=== PATIENT | female | born 1985 | race Caucasian/White ===

== ENCOUNTER 2021-08-15 20:45 | Emergency (ER) | payer OTHER, SELFPAY ==
[2021-08-15 21:43] VITALS: BP 147/89; PULSE 86; RESP 22; TEMP 36.8; O2SAT 96; BMI 37.1
[2021-08-15 22:03] VITALS: BP 147/89; PULSE 86; RESP 20; TEMP 36.6
--- NOTE | 2021-08-15 22:04 | HMH.EDUTC ---
[facility] [place] Disposition Clinical Impression: Encounter for laboratory testing for COVID-19 virus Disposition: Home, Self-Care Condition on Discharge: Good Instructions: DI for COVID-19 (Suspected or Confirmed ), Preventing the Spread of Coronavirus Discharge Instructions Additional Instructions: *Monitor Temp, Over the counter Motrin or Tylenol as directed/as needed Tylenol every 4 hours and Motrin every 6 hours (as long as your family doctor has told you that you can take it) for fever or pain. and straight to ER if unable to lower temp less than 101.0 after medication given Follow up IMMEDIATELY for new or worsening symptoms or no Noticeable improvement over the next 48-72 hours. 911 for difficulty breathing or swallowing You were tested for today for COVID19 your test result should be back in the next 24-48 hours, you was given handout with instructions on how to log onto the [facility] portal if you have trouble you may call back for your results You was given a handout with instructions for Self Quarantine and Self isolation for while you wait on test results and what to do if they are positive If you are positive the Health Dept will be contacting you also Make sure to take your Vitamins Vit. C Vit D and Zinc if you can take them Referrals: Provider,Referral, MD [Primary Care Provider] - As needed Time of Disposition: 22:08 Medical Decision Making - Bert Inquiry Pt receiving controlled substance: No Bert was queried for this patient: No Vital Signs: 08/15/21 21:43 08/15/21 22:03 Temperature 98.2 F 98 F Temperature Source Oral Pulse Rate 86 Pulse Rate [Left] 86 Respiratory Rate 22 20 Blood Pressure 147/89 H Blood Pressure [Right Arm] 147/89 H Blood Pressure Mean [Right Arm] 108 02 Sat by Pulse Oximetry 96 Orders (Tests/Meds): ORDERS Category Date Time Status Covid-19 Nasal PCR ([facility]) Routine Lab 08/15/21 21:48 Received [facility] HPI - General Stated complaint: covid test Time Seen by Provider: 08/15/21 22:04 Mode of Arrival: Ambulatory Source of Information: Patient Limitations: No Limitations Description of Symptoms (Recalled from Triage Doc. by RN): pts was directly exposed to covid. pts pcp believes she has L lobe lung cancer. she presents with soa, lung pain and a cough. pt states it feels about the same as it has before exposure. she believes this is her baseline. HEENT Symptoms (Recalled from RN notes): No Resp Symptoms (Recalled from RN notes): Yes Skin Symptoms (Recalled from RN notes): No MS Symptoms (Recalled from RN notes): No Functional Status (Recalled from RN notes): na - History of Present Illness Provider Complaint: Patient state that she is currently being seen by her PCP and worked up for Lung CA states that she was recently around someone that tested positive for COVID States that she has appointment tomorrow with her Lung Doctor and she wanted to get tested before her appointment States that she is not having any symptoms any different than she usually has - Worker's Comp Is this a Worker's Comp case?: No [facility] History - Hepatitis A Screen Drug use history?: No High risk sexual behaviors?: No History of sexually transmitted infection?: No Currently employed?: No Childcare worker?: No Do you have indoor plumbing?: Yes Do you have electricity?: Yes Attestation statement:: This patient has been screened for Hepatitis A risk factors. I have reviewed the patient's past medical history: Yes ROS Obtained: Yes All systems reviewed & no additional complaints, Yes Systems reviewed as appropriate & no additional complaints - Constitutional Constitutional: Reports system reviewed and no additional complaints, except as docu, Denies body ache, Denies chills, Denies fever(s) - ENT Ears, Nose, Mouth, and Throat: Reports system reviewed and no additional complaints, except as docu, Denies nasal congestion, Denies nasal discharge, Denies sore throat - Cardiovascular Cardi
== END 2021-08-15 22:14 | disposition home or self-care (01) ==
PROVIDERS: Emergency Provider Nurse Practitioner
DX: Z20.822 Contact with and (suspected) exposure to COVID-19 (principal); C34.90 Malignant neoplasm of unspecified part of unspecified bronchus or lung; R05 Cough; R07.9 Chest pain, unspecified
CPT/HCPCS: 99202; C9803; G0463; U0003; U0005

== ENCOUNTER 2022-07-24 10:15 | Emergency (ER) | payer OTHER, SELFPAY ==
[2022-07-24 10:16] VITALS: BP 92/63; PULSE 86; RESP 18; TEMP 36.9; O2SAT 98; BMI 35.5
--- NOTE | 2022-07-24 11:45 | CT_ITS ---
FINAL REPORT TECHNIQUE: Axial images through the abdomen and pelvis were performed without contrast. This study was performed with techniques to keep radiation doses as low as reasonably achievable, (ALARA). Individualized dose reduction techniques using automated exposure control or adjustment of mA and/or kV according to the patient's size were employed. CLINICAL HISTORY: concern for nephrolithiasis pain right side FINDINGS: ABDOMEN: The lung bases are clear. The heart size is normal. Limited images of the liver are unremarkable. The patient is status post cholecystectomy. The spleen is normal. No adrenal mass is identified. The aorta is normal in caliber. There is no significant free fluid or adenopathy. There is no nephrolithiasis. There is no hydronephrosis. There is right perinephric stranding which may be due to acute right pyelonephritis or sequela of recently passed ureteral stone. No ureteral stone is identified. PELVIS: The appendix is unremarkable. The urinary bladder is unremarkable. There is no significant free fluid or adenopathy. IMPRESSION: Acute right pyelonephritis versus sequela of recently passed ureteral stone. Reviewed, Interpreted and Dictated by Hilario Harper III, MD Transcribed by Meg Cosby Authenticated and . [facility]
[2022-07-24 11:57] LABS: Microscopic, Urine URINE MICROSCOPIC (MICROSCOPIC)
[2022-07-24 11:59] LABS: Appearance,Urine CLOUDY (Clear); Blood, Urine 3+ (Negative); Color,Urine YELLOW (Yellow); Glucose,Urine (UA) Negative (Negative); Ketones,Urine 1+ (Negative); Leukocyte Esterase,Urine 3+ (Negative); Nitrate,Urine POSITIVE (Negative); Protein,Urine 1+ (Negative); Specific Gravity, Urine 1.015 (1.005-1.030)
[2022-07-24 12:04] LABS: Bilirubin,Urine 1+ (Negative); Coronavirus 19, PCR Not Detected (NotDetected); Influenza A, PCR Not Detected (NotDetected); Influenza B, PCR Not Detected (NotDetected)
[2022-07-24 12:15] LABS: Bacteria,Urine 2+ /lpf; Squamous Epithelial Cell,Urine Occasional #/hpf (0-5); WBC,Urine 20-50 #/hpf (0-3)
[2022-07-24 12:30] VITALS: BP 109/72; PULSE 83; O2SAT 95
[2022-07-24 12:43] LABS: Basophils # 0.1 K/mm3 (0-0.2); Basophils % 0.5 % (0.1-2.0); Eosinophils # 0.1 K/mm3 (0.0-0.4); Eosinophils % 1.2 % (0.1-12.0); Hematocrit 37.6 % (37.0-47.0); Hemoglobin 11.4 g/dL (12.2-16.2); Lymphocytes # 1.5 K/mm3 (0.7-4.5); Lymphocytes % 13.6 % (10-50); Mean Corpuscular HGB Conc 30.5 g/dL (31.8-35.4); Mean Corpuscular Hemoglobin 23.4 pg (27.0-31.2); Mean Corpuscular Volume 76.7 fl (81-99); Mean Platelet Volume 8.8 fl (7.4-10.4); Monocytes # 0.9 K/mm3 (0.1-1.0); Monocytes % 8.2 % (1.7-9.3); Neutrophils # 8.2 K/mm3 (1.8-7.8); Neutrophils % 76.5 % (37.0-80.0); Platelet Count 500 K/mm3 (142-424); Red Cell Distribution Width 17.4 % (11.5-17.5); White Blood Count 10.7 K/mm3 (4.8-10.8)
[2022-07-24 12:48] LABS: Alanine Aminotransferase 26 U/L (12-78); Albumin Level 3.8 g/dl (3.5-5.0); Alkaline Phosphatase 128 U/L (38-126); Anion Gap 10.7 mEq/L (5-15); Aspartate Amino Transferase 43 U/L (14-36); Bilirubin,Total 0.2 mg/dl (0.2-1.3); Blood Urea Nitrogen 13 mg/dl (7-17); Carbon Dioxide 31 mmol/L (22.0-30.0); Chloride 101 mmol/L (98-107); Creatinine Clearance Estimated 120 mL/min (50-200); Estimated Glomerular Filt Rate 62 ml/min (>60); GFR (African American) 75 ML/MIN (>60); Glucose 128 mg/dl (74-100); Lipase 106 U/L (23-300); Potassium 3.7 mmoL/L (3.5-5.1); Sodium 139 mmol/L (136-145); Total Protein,Serum 7.8 g/dl (6.3-8.2)
[2022-07-24 13:07] LABS: Procalcitonin 0.312 ng/mL (0.0-2.0)
[2022-07-24 13:31] VITALS: BP 114/78; PULSE 77; O2SAT 100
--- NOTE | 2022-07-24 13:49 | HMH.EDGENADL ---
Discharge Plan Disposition Patient Disposition: Home, Self-Care Condition: Fair Prescriptions Prescriptions: New cefdinir 300 mg capsule 300 mg PO BID 10 Days Qty: 20 0RF Referrals Follow up/Referrals: Provider,Referral, [Primary Care Provider] - See instructions Clinical Impressions Clinical Impression: Pyelonephritis Instructions Patient Instructions: DI for Kidney Infection Discharge ED Provider: Kris Ross General Adult HPI General Chief complaint: PAIN Stated complaint: Fever, chills, lower back pain Time Seen by Provider: 07/24/22 10:30 Mode of Arrival: Ambulatory Source of Information: Patient Limitations: No Limitations Description of Symptoms (Recalled from ER Triage Doc. by RN): c/o fever, vomiting, right side pain that has moved into her bladder , symptoms started 1 week ago History of Present Illness HPI narrative: This is a 36-year-old female who presents with concern for right-sided pain and abdominal pain. She says that the pain started about a week ago. She says that started on her right side and then subsequently moved into the suprapubic area. She says that yesterday she went to the bathroom and had a substantial amount of pain but the pain did get a little bit better afterwards. She continues to have pretty substantial right flank pain as well as suprapubic pain. She does endorse some fever and chills as well. She says that the pain feels like it connects between the 2 areas. She has been a little nauseous as well. Denies any diarrhea. Denies any chest pain. Related Data Previous Rx's Medication Instructions Recorded cefdinir 300 mg capsule 300 mg PO BID 10 days #20 caps 07/24/22 Allergies Allergy/AdvReac Type Severity Reaction Status Date / Time ondansetron [From Zofran] Allergy Verified 07/24/22 12:10 [facility] Social History Smoking Status: Current every day smoker alcohol intake: never current occupational status: other Travel in the last 8 weeks: None ROS Obtained: Yes All systems reviewed & no additional complaints except as documented A 14 point review of system was performed and negative except per HPI Physical Exam General General appearance: alert and in no apparent distress Head Head exam: atraumatic, normocephalic and normal inspection Eye Eye exam: Present normal appearance, PERRL and EOMI ENT ENT exam: Present normal exam, normal oropharynx, mucous membranes moist, TM's normal bilaterally and normal external ear exam Neck Neck exam: Present normal inspection, full ROM and trachea midline; Absent meningismus or lymphadenopathy Chest Chest inspection: Present normal inspection and symmetric chest wall rise; Absent tenderness Respiratory Respiratory exam: Present normal lung sounds bilaterally; Absent respiratory distress Cardiovascular Cardiovascular exam: Present regular rate and normal rhythm; Absent JVD Abdominal Exam Abdominal exam: Present soft, tenderness and normal bowel sounds; Absent distention or guarding Abdominal tenderness: Present suprapubic Extremities Exam Extremities exam: Present normal inspection, full ROM and normal capillary refill; Absent calf tenderness Back Exam Back exam: Present normal inspection and CVA tenderness (R); Absent tenderness Neurological Exam Neurological exam: Present alert and oriented X3 Psychiatric Psychiatric exam: Present normal affect and normal mood Skin Skin exam: Present warm, dry, intact and normal color Lymphatic Lymphatic Findings: no adenopathy Medical Decision Making Bert Inquiry Pt receiving controlled substance: Yes Bert was queried for this patient: No Risks and benefits of using a controlled substance: were discussed with pt by me Vital Signs: 07/24/22 10:16 Temperature 98.4 F Temperature Source Oral Pulse Rate [Left Radial] 86 Respiratory Rate 18 Blood Pressure [Right Arm] 92/63 L Blood Pressure Mean [Right Arm] 72 Blood Pressure Source [Right Arm]
[2022-07-24 14:00] VITALS: BP 109/72; PULSE 68; O2SAT 98
[2022-07-24 14:07] VITALS: BP 109/72; PULSE 66; RESP 16; TEMP 36.9; O2SAT 98
== END 2022-07-24 14:11 | disposition home or self-care (01) ==
PROVIDERS: Emergency Provider Student in an Organized Health Care Education/Training Program
DX: N39.0 Urinary tract infection, site not specified (principal); M54.50 Low back pain, unspecified; R11.2 Nausea with vomiting, unspecified; R50.9 Fever, unspecified; F17.210 Nicotine dependence, cigarettes, uncomplicated; Z20.822 Contact with and (suspected) exposure to COVID-19; Z88.8 Allergy status to other drugs, medicaments and biological substances
CPT/HCPCS: 74176; 80053; 81001; 83690; 84145; 85025; 86140; 87086; 87088; 87186; 96361; 96374; 96375; 99285; C9803; J0696; U0003; U0005

== ENCOUNTER 2022-08-16 12:03 | Emergency (ER) | payer OTHER, SELFPAY ==
[2022-08-16 12:12] VITALS: BP 103/73; PULSE 114; RESP 17; TEMP 37.2; O2SAT 100; BMI 34.4
--- NOTE | 2022-08-16 12:15 | HMH.EDGENADL ---
Discharge Plan Disposition Patient Disposition: Home, Self-Care Condition: Good Prescriptions Prescriptions: New cephalexin 500 mg capsule 500 mg PO Q6H 7 Days Qty: 28 0RF No Action cefdinir 300 mg capsule 300 mg PO BID 10 Days Qty: 20 0RF Referrals Follow up/Referrals: Provider,Referral, [Primary Care Provider] - See instructions Clinical Impressions Clinical Impression: UTI (urinary tract infection) Instructions Patient Instructions: DI for Urinary Tract Infection (UTI), Cephalexin Discharge ED Provider: Neville Weaver General Adult HPI General Chief complaint: PAIN Stated complaint: Fever, chills, RT lower back pain Time Seen by Provider: 08/16/22 12:15 History of Present Illness HPI narrative: 36-year-old female with history of nephrolithiasis, has never required lithotripsy in the past. She presents with 1 day of severe right flank pain, pain rated 10 out of 10, radiating from the right flank into the right groin associated with dysuria. She reports associated nausea, no vomiting or fever. No treatments thus far. She states she was seen here previously for similar episode a few weeks ago stone at that time passed spontaneously. Related Data Previous Rx's Medication Instructions Recorded cefdinir 300 mg capsule 300 mg PO BID 10 days #20 caps 07/24/22 cephalexin 500 mg capsule 500 mg PO Q6H 7 days #28 caps 08/16/22 Allergies Allergy/AdvReac Type Severity Reaction Status Date / Time ondansetron [From Zofran] Allergy Verified 07/24/22 12:10 [facility] PFS Social History Smoking Status: Never smoker alcohol intake: never current occupational status: other Travel in the last 8 weeks: None ROS Obtained: Yes Systems reviewed as appropriate & no additional complaints except as documented Constitutional Constitutional: Reports system reviewed and no additional complaints, except as documented Eyes Eyes: Reports system reviewed and no additional complaints, except as documented ENT Ears, Nose, Mouth, and Throat: Reports system reviewed and no additional complaints, except as documented Cardiovascular Cardiovascular: Reports system reviewed and no additional complaints, except as documented Respiratory Respiratory: Reports system reviewed and no additional complaints, except as documented Gastrointestinal Gastrointestingal: Reports system reviewed and no additional complaints, except as documented Genitourinary Female Genitourinary: Reports as per HPI and Reports dysuria Musculoskeletal Musculoskeletal: Reports system reviewed and no additional complaints, except as documented Integumentary/Breasts Skin/Breast: Reports system reviewed and no additional complaints, except as documented Neurologic Neurologic: Reports system reviewed and no additional complaints, except as documented Endocrine Endocrine: Reports system reviewed and no additional complaints, except as documented Hematologic/Lymphatic Henatologic/Lymphatic: Reports system reviewed and no additional complaints, except as documented Allergic/Immunologic Allergic/Immunologic: Reports system reviewed and no additional complaints, except as documented Physical Exam General General appearance: alert and in no apparent distress (Mild distress) Head Head exam: atraumatic, normocephalic and normal inspection Eye Eye exam: Present normal appearance, PERRL and EOMI ENT ENT exam: Present normal exam, normal oropharynx, mucous membranes moist, TM's normal bilaterally and normal external ear exam Neck Neck exam: Present normal inspection, full ROM and trachea midline; Absent meningismus or lymphadenopathy Chest Chest inspection: Present normal inspection and symmetric chest wall rise; Absent tenderness Respiratory Respiratory exam: Present normal lung sounds bilaterally; Absent respiratory distress Cardiovascular Cardiovascular exam: Present regular rate and normal rhythm; Absen
[2022-08-16 12:28] LABS: Chloride 98 mmol/L (98-107)
[2022-08-16 12:29] LABS: Basophils # 0.1 K/mm3 (0-0.2); Basophils % 0.4 % (0.1-2.0); Eosinophils # 0.3 K/mm3 (0.0-0.4); Eosinophils % 2.1 % (0.1-12.0); Hematocrit 39.5 % (37.0-47.0); Hemoglobin 12.2 g/dL (12.2-16.2); Lymphocytes # 1.1 K/mm3 (0.7-4.5); Lymphocytes % 8.2 % (10-50); Mean Corpuscular HGB Conc 30.8 g/dL (31.8-35.4); Mean Corpuscular Hemoglobin 23.5 pg (27.0-31.2); Mean Corpuscular Volume 76.2 fl (81-99); Mean Platelet Volume 8.5 fl (7.4-10.4); Monocytes # 1.1 K/mm3 (0.1-1.0); Monocytes % 8.1 % (1.7-9.3); Neutrophils # 11.2 K/mm3 (1.8-7.8); Neutrophils % 81.2 % (37.0-80.0); Platelet Count 377 K/mm3 (142-424); Potassium 4.2 mmoL/L (3.5-5.1); Red Blood Count 5.19 M/mm3 (4.20-5.40); Red Cell Distribution Width 18.1 % (11.5-17.5); Sodium 135 mmol/L (136-145); White Blood Count 13.8 K/mm3 (4.8-10.8)
[2022-08-16 12:30] VITALS: BP 101/68; PULSE 104
--- NOTE | 2022-08-16 12:30 | CT_ITS ---
FINAL REPORT TECHNIQUE: Noncontrast exam CLINICAL HISTORY: flank pain, right FINDINGS: Abdomen: Lung bases are clear. Fatty liver with mild hepatosplenomegaly. Right perinephric stranding without hydronephrosis or obstructing stone. This can be seen with recently passed stone or pyelonephritis. Evidence of cholecystectomy. Remaining solid abdominal organs unremarkable. Pelvis: No distal ureteral stones are seen. Bladder is unremarkable. No bowel obstruction. Normal appendix. Uterus and ovaries are unremarkable. Trace amount of free fluid. IMPRESSION: Right perinephric stranding without hydronephrosis or obstructive stone which can be seen with recently passed stone or pyelonephritis. Reviewed, Interpreted and Dictated by Susan Narayan MD Transcribed by Paul Armstrong Authenticated and [facility]
[2022-08-16 12:31] LABS: Alanine Aminotransferase 23 U/L (12-78); Aspartate Amino Transferase 37 U/L (14-36); Blood Urea Nitrogen 11 mg/dl (7-17); Creatinine Clearance Estimated 150 mL/min (50-200); Estimated Glomerular Filt Rate 80 ml/min (>60); GFR (African American) 97 ML/MIN (>60)
[2022-08-16 12:32] LABS: Albumin Level 3.9 g/dl (3.5-5.0); Albumin/Globulin Ratio 1.2 (1.1-1.8); Alkaline Phosphatase 114 U/L (38-126); Anion Gap 14.2 mEq/L (5-15); Bilirubin,Total 0.3 mg/dl (0.2-1.3); Calcium 8.7 mg/dl (8.4-10.2); Carbon Dioxide 27 mmol/L (22.0-30.0); Globulin 3.3 g/dL (1.3-3.2); Glucose 103 mg/dl (74-100); Total Protein,Serum 7.2 g/dl (6.3-8.2)
[2022-08-16 12:41] LABS: Microscopic, Urine URINE MICROSCOPIC (MICROSCOPIC)
[2022-08-16 12:42] LABS: Appearance,Urine SL CLOUDY (Clear); Bilirubin,Urine Negative (Negative); Blood, Urine 1+ (Negative); Color,Urine YELLOW (Yellow); Glucose,Urine (UA) Negative (Negative); Ketones,Urine Negative (Negative); Leukocyte Esterase,Urine 2+ (Negative); Nitrate,Urine Negative (Negative); Protein,Urine TRACE (Negative); Urobilinogen,Urine 0.2 EU/dl (0.2)
--- NOTE | 2022-08-16 12:48 | PC.NURSE ---
PT BACK FROM CT
--- NOTE | 2022-08-16 12:49 | PC.NURSE ---
pt got up to use restroom got a urine sample, pt back in bed
--- NOTE | 2022-08-16 12:51 | PC.NURSE ---
rad brought pt back , pt sitting up in bed asked pt if she needed anything she stated not at this time
[2022-08-16 12:55] LABS: Bacteria,Urine 1+ /lpf; RBC,Urine Occasional #/hpf (0-3)
[2022-08-16 13:00] VITALS: BP 105/70; PULSE 100; RESP 17; O2SAT 95
[2022-08-16 13:30] VITALS: BP 114/67; PULSE 103; RESP 17; O2SAT 95
[2022-08-16 14:00] VITALS: BP 95/63
--- NOTE | 2022-08-16 14:46 | PC.NURSE ---
spoke to about IM administration of abx d/t IV infiltration. ok'd IM administration
[2022-08-16 15:01] VITALS: BP 104/72; PULSE 94; RESP 18; TEMP 37.1; O2SAT 98
== END 2022-08-16 15:03 | disposition home or self-care (01) ==
PROVIDERS: Emergency Provider Emergency Medicine
DX: N39.0 Urinary tract infection, site not specified (principal); Z88.8 Allergy status to other drugs, medicaments and biological substances
CPT/HCPCS: 74176; 80053; 81001; 85025; 87086; 87088; 87186; 96374; 99284; J0696

== ENCOUNTER 2023-08-02 21:30 | Observation (INO) | payer OTHER, SELFPAY ==
[2023-08-02 21:32] VITALS: BP 134/69; PULSE 99; RESP 20; TEMP 38.3; O2SAT 95; BMI 36.0
[2023-08-02 21:40] VITALS: BP 134/69; PULSE 109; RESP 20; O2SAT 95
--- NOTE | 2023-08-02 21:49 | CT_ITS ---
PROCEDURE INFORMATION: Exam: CT Abdomen And Pelvis With Contrast Exam date and time: 08/02/2023 10:39 PM Age: 37 years old Clinical indication: Abdominal pain; Additional info: Rlq pain TECHNIQUE: Imaging protocol: Computed tomography of the abdomen and pelvis with contrast. Radiation optimization: All CT scans at this facility use at least one of these dose optimization techniques: automated exposure control; mA and/or kV adjustment per patient size (includes targeted exams where dose is matched to clinical indication); or iterative reconstruction. Contrast material: ISOVUE; Contrast volume: 75 ml; Contrast route: IV; REPORTING DATA: Count of CT and Cardiac NM exams in prior 12 months: This patient has received [address] and 0 known cardiac nuclear medicine studies in the 12 months prior to the current study. COMPARISON: CT ABDOMEN PELVIS WO CON 08/16/2022 12:30 PM FINDINGS: Lungs: Clear basilar lung parenchyma. Pleural spaces: No pleural fluid. Heart: Normal heart size. Liver: Normal configuration. Homogeneous parenchyma. Gallbladder and bile ducts: Prior cholecystectomy. No biliary tree dilation or high-density retained stones appreciated. Pancreas: Normal. No ductal dilation. Spleen: Normal. No splenomegaly. Adrenal glands: Normal configuration. Kidneys and ureters: Right kidney is edematous. There is diffuse enhancement of the right ureter without dilation. Normal appearance of the left kidney and ureter. Stomach and bowel: Unremarkable. No obstruction. No mural thickening. Appendix: Normal appendix is confirmed. Intraperitoneal space: No free air. No significant fluid collection. Vasculature: Normal caliber arterial structures. Lymph nodes: No enlarged lymph nodes. Urinary bladder: There is mild enhancement of the bladder mucosa. Reproductive: Physiologic appearance for age. Bones/joints: No fracture or destructive lesion. Soft tissues: Unremarkable. IMPRESSION: Exam demonstrates findings of cystitis and right ureteritis. There may be early acute right pyelonephritis as well.
[2023-08-02 21:52] LABS: Microscopic, Urine URINE MICROSCOPIC (MICROSCOPIC)
[2023-08-02 21:54] LABS: Appearance,Urine TURBID (Clear); Blood, Urine 3+ (Negative); Color,Urine BROWN (Yellow); Glucose,Urine (UA) Negative (Negative); Ketones,Urine TRACE (Negative); Leukocyte Esterase,Urine 3+ (Negative); Nitrate,Urine POSITIVE (Negative); Protein,Urine 3+ (Negative)
[2023-08-02 22:05] LABS: Bilirubin,Urine 1+ (Negative)
[2023-08-02 22:06] LABS: Bacteria,Urine 3+ /lpf; WBC,Urine TNTC #/hpf (0-3)
[2023-08-02 22:13] LABS: Basophils % 0.2 % (0.1-2.0); Eosinophils # 0.5 K/mm3 (0.0-0.4); Eosinophils % 4.1 % (0.1-12.0); Hematocrit 45.6 % (37.0-47.0); Hemoglobin 13.2 g/dL (12.2-16.2); Lymphocytes # 1.4 K/mm3 (0.7-4.5); Mean Corpuscular Hemoglobin 21.4 pg (27.0-31.2); Mean Corpuscular Volume 73.7 fl (81-99); Monocytes # 0.9 K/mm3 (0.1-1.0); Monocytes % 7.1 % (1.7-9.3); Neutrophils # 9.7 K/mm3 (1.8-7.8); Neutrophils % 77.6 % (37.0-80.0); Platelet Count 435 K/mm3 (142-424); Red Blood Count 6.19 M/mm3 (4.20-5.40); Red Cell Distribution Width 16.6 % (11.5-17.5); White Blood Count 12.5 K/mm3 (4.8-10.8)
[2023-08-02 22:24] LABS: Alanine Aminotransferase 28 U/L (12-78); Albumin Level 4.5 g/dl (3.5-5.0); Albumin/Globulin Ratio 1.1 (1.1-1.8); Alkaline Phosphatase 123 U/L (38-126); Anion Gap 14.7 mEq/L (5-15); Aspartate Amino Transferase 35 U/L (14-36); Bilirubin,Total 0.2 mg/dl (0.2-1.3); Blood Urea Nitrogen 15 mg/dl (7-17); Calcium 9.2 mg/dl (8.4-10.2); Carbon Dioxide 31 mmol/L (22.0-30.0); Chloride 99 mmol/L (98-107); Creatinine Clearance Estimated 124 mL/min (50-200); Estimated Glomerular Filt Rate 62 ml/min (>60); GFR (African American) 75 ML/MIN (>60); Globulin 4.1 g/dL (1.3-3.2); Glucose 124 mg/dl (74-100); Potassium 4.7 mmoL/L (3.5-5.1); Sodium 140 mmol/L (136-145); Total Protein,Serum 8.6 g/dl (6.3-8.2)
[2023-08-02 22:30] VITALS: BP 121/76; PULSE 120; RESP 20; O2SAT 95
[2023-08-02 23:00] VITALS: BP 115/70; PULSE 104; RESP 16; O2SAT 96
--- NOTE | 2023-08-02 23:12 | HMH.EDGENADL ---
Discharge Plan Disposition Patient Disposition: Admitted Condition: Good Prescriptions Prescriptions: No Action cefdinir 300 mg capsule 300 mg PO BID 10 Days Qty: 20 0RF cephalexin 500 mg capsule 500 mg PO Q6H 7 Days Qty: 28 0RF fluconazole [Diflucan] 150 mg tablet 150 mg PO DAILY Qty: 1 0RF Rx Instructions: administer on day 1 of therapy Referrals Follow up/Referrals: Provider,Referral, MD [Primary Care Provider] - See instructions Clinical Impressions Clinical Impression: Pyelonephritis, Sepsis Instructions Patient Instructions: DI for Acute Abdominal Pain Discharge ED Provider: Arlene Guillen General Adult HPI General Chief complaint: Abdominal Pain Stated complaint: Lower RT side abd pain Time Seen by Provider: 08/02/23 21:47 Mode of Arrival: Ambulatory Source of Information: Patient Limitations: No Limitations Description of Symptoms (Recalled from ER Triage Doc. by RN): pt has cc of rlq pain, urinary frequency and pain along with blood in the urine, nausea and fever History of Present Illness HPI narrative: This patient is a 37-year-old female with a history of hepatitis C presenting to the emergency department for evaluation with concern for fever, chills, nausea, vomiting, and right lower quadrant pain radiating to her suprapubic region and vagina. She states that this started several days ago but acutely worsened today. She states that the pain is severe. She also states that it hebert when she pees and she is having urinary frequency. She denies any other concerns or complaints, such as changes in her bowel movements or other issues. Nothing seems to make it better or worse. Related Data Previous Rx's Medication Instructions Recorded cefdinir 300 mg capsule 300 mg PO BID 10 days #20 caps 07/24/22 cephalexin 500 mg capsule 500 mg PO Q6H 7 days #28 caps 08/16/22 fluconazole 150 mg tablet 150 mg PO DAILY 1 dose #1 tab 08/16/22 (Diflucan) Allergies Allergy/AdvReac Type Severity Reaction Status Date / Time ondansetron [From Zofran] Allergy Verified 07/24/22 12:10 [facility] Disclaimer: The information contained in this section may have been updated after the patient was seen, as this information can be updated by other users. Social History Smoking Status: Former smoker alcohol intake: never current occupational status: other Travel in the last 8 weeks: None ROS Obtained: Yes All systems reviewed & no additional complaints except as documented Physical Exam General General appearance: alert Comment: Ill and uncomfortable appearing, nontoxic Head Head exam: atraumatic and normocephalic Eye Eye exam: Present normal appearance, PERRL and EOMI ENT ENT exam: Present normal exam, normal oropharynx, mucous membranes moist and normal external ear exam Neck Neck exam: Present normal inspection, full ROM and trachea midline; Absent tenderness Chest Chest inspection: Present normal inspection and symmetric chest wall rise; Absent tenderness Respiratory Respiratory exam: Present normal lung sounds bilaterally; Absent respiratory distress, wheezes, stridor or accessory muscle use Cardiovascular Cardiovascular exam: Present normal rhythm and tachycardia Abdominal Exam Abdominal exam: Present soft and tenderness (Suprapubic); Absent distention, guarding, rebound or rigidity Extremities Exam Extremities exam: Present normal inspection, full ROM and normal capillary refill; Absent tenderness or edema Back Exam Back exam: Present normal inspection and full ROM; Absent tenderness Neurological Exam Neurological exam: Present alert, oriented X3, CN II-XII intact and normal gait; Absent motor sensory deficit Psychiatric Psychiatric exam: Present normal affect and normal mood Skin Skin exam: Present warm and dry Medical Decision Making Medical Records Medical records reviewed: Yes I reviewed the patient's medical
[2023-08-02 23:30] VITALS: BP 104/77; PULSE 103; RESP 18; O2SAT 96
--- NOTE | 2023-08-02 23:39 | PC.NURSE ---
ER MD spoke with hospitalist regarding patient admission for sepsis and pylonephritis. ER charge nurse called boilerhouse mechanic
--- NOTE | 2023-08-02 23:40 | PC.NURSE ---
notified household assistant of admission
--- NOTE | 2023-08-02 23:40 | PC.NURSE ---
OBSERVATION ADMISSION TO 213 WITH DX OF PYELONEPHRITIS AND SEPSIS TO SERVICE OF HOSPITALIST.
--- NOTE | 2023-08-02 23:41 | EXP.HP ---
History of Present Illness *Admission Date: 08/02/23 *Reason for visit:: Pyelonephritis *History of present illness: 37-year-old female presented to ED for c/o RLQ abd pain since Saturday. PMHX of hepatitis C, prior heroin use, and COPD. RLQ abd pain radiates to her suprapubic region and vagina. She also c/o fever, chills, and nausea. She also states that it hebert when she pees and she is having urinary frequency. She denies any other concerns or complaints, such as changes in her bowel movements or other issues. ED work up reveals leukocytosis of 12.5, heart rate of 115, and tmax of 101. Her urine is positive for nitrates, leukocyte esterase, TNTC WBC count, and +[address] of the abd/pelvis reveals acute right sided pyelonephritis. She had blood cultures and a urine culture obtained in the ED. She was started on Rocephin 1gm IV. The ED physician spoke with the hospitalist team for further medical management. She arrives to the medical floor in no acute distress requesting to eat. [facility] Disclaimer: The information contained in this section may have been updated after the patient was seen, as this information can be updated by other users. Medical History (Updated 08/03/23 @ 00:45 by NAMRATA Barajas) Anxiety Asthma Chronic bronchitis COPD (chronic obstructive pulmonary disease) Depression Hepatitis C Hypertension Manic bipolar I disorder PTSD (post-traumatic stress disorder) Restless leg syndrome Surgical History (Updated 08/03/23 @ 00:26 by Nicole Henson RN) History of cholecystectomy History of tonsillectomy and adenoidectomy History of tubal ligation Social History (Updated 08/03/23 @ 00:26 by Nicole Henson RN) Smoking Status: Former smoker smoking status stop date: 2 years ago alcohol intake: never current occupational status: employed and other Travel in the last 8 weeks: None household members: children and friend(s) marital status: number of children: 7 Review of Systems *Cardiovascular Cardiovascular: Reports system reviewed and no additional complaints, except as documented, Denies chest pain and Denies dyspnea *Respiratory Respiratory: Reports system reviewed and no additional complaints, except as documented and Denies dyspnea *Gastrointestinal Gastrointestinal: Reports abdominal pain (RLQ) *Genitourinary Genitourinary: Reports as per HPI, Reports difficulty voiding, Reports dysuria and Reports pelvic pain *Musculoskeletal Musculoskeletal: Reports system reviewed and no additional complaints, except as documented *Neurologic Neurologic: Reports system reviewed and no additional complaints, except as documented Meds Home Medications and Allergies Home Medications Medication Instructions Recorded Confirmed Type albuterol sulfate 90 mcg/actuation 2 puff inhalation DAILY PRN SOB 08/03/23 08/03/23 History aerosol inhaler (Ventolin HFA) buprenorphine 8 mg-naloxone 2 mg 1 tab sublingual BID Former Drug 08/03/23 08/03/23 History sublingual tablet User cariprazine 1.5 mg capsule 1.5 mg PO HS Depression 08/03/23 08/03/23 History (Lali) escitalopram oxalate 20 mg tablet 20 mg PO HS Depression 08/03/23 08/03/23 History fluticasone propionate 115 1 puff inhalation BID Copd 08/03/23 08/03/23 History mcg-salmeterol 21 mcg/actuation HFA inhaler (Advair HFA) fluticasone propionate 50 1 spray intranasal NEEDED PRN 08/03/23 08/03/23 History mcg/actuation nasal allergies spray,suspension gabapentin 600 mg tablet 600 mg PO TID Restless leg pain 08/03/23 08/03/23 History hydroxyzine pamoate 50 mg capsule 50 mg PO DAILY Anxiety 08/03/23 08/03/23 History ketotifen fumarate 0.025 % (0.035 1 drp Eye-Both BID Cateracts 08/03/23 08/03/23 History %) eye drops lamotrigine 100 mg tablet 100 mg PO DAILY Depression 08/03/23 08/03/23 History levocetirizine 5 mg tablet 5 mg PO DAILY allergies 08/03/23 08/03/23 History meloxicam 15 mg tablet 15 m
--- NOTE | 2023-08-02 23:59 | PC.NURSE ---
called report to anshu viera on 2nd floor all questions answered
[2023-08-03] VITALS (9 sets, daily range): BP systolic 101–157; BP diastolic 55–87; PULSE 87–115; RESP 17–20; TEMP 36.8–37.7; O2SAT 93–100; BMI 36.8
--- NOTE | 2023-08-03 00:06 | PC.NURSE ---
RECEIVED PHONE REPORT FROM NATALIIA RN/ED NURSE AT 0647. PATIENT ARRIVED TO THE FLOOR VIA W/C AT 0005. DIAGNOSIS: SEPSIS/PYELONEPHRITIS. TAKES SUBOXONE.
--- NOTE | 2023-08-03 00:45 | EXP.SEPSISRE ---
[facility] Tissue Perfusion Eval Sepsis Re-Evaluation Performed: Yes Date Performed: 08/03/23 Time Performed: 00:45
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
--- NOTE | 2023-08-03 10:41 | EXP.PN ---
Subjective *Date: 08/03/23 *Time: 13:56 Interval history: Patient is seen and evaluated today. I am accompanied by her her nurse. Nursing staff report that she remains afebrile with tachycardic heart rate, stable blood pressures and saturating appropriately on room air. She reports inadequate pain control on her high-dose Suboxone therapy. We have added IV Toradol as needed and acetaminophen. CT of the abdomen and pelvis identifies right pyelonephritis. Exam Data for Last 24 hours Vital signs and Labs for Last 24 Hours: Temp Pulse Resp BP Pulse Ox O2 Del Method 99.8 F H 113 H 20 157/87 H 93 L Room Air 08/03/23 07:34 08/03/23 08:00 08/03/23 07:34 08/03/23 07:34 08/03/23 07:34 08/03/23 09:00 Laboratory Results - last 24 hr 08/02/23 21:37: Urine Color Brown, Urine Appearance Turbid, Urine pH 7.0, Ur Specific [place] 1.020, Urine Protein 3+, Urine Glucose (UA) Negative, Urine Ketones Trace, Urine Blood 3+, Urine Nitrate Positive, Urine Bilirubin 1+ A, Urine Urobilinogen 1.0, Ur Leukocyte Esterase 3+ A, Urine RBC 10-20, Urine WBC Tntc, Ur Squamous Epith Cells 5-10, Urine Bacteria 3+ 08/02/23 22:00: WBC 12.5 H, RBC 6.19 H, Hgb 13.2, Hct 45.6, MCV 73.7 L, MCH 21.4 L, MCHC 29.0 L, RDW 16.6, Plt Count 435 H, MPV 9.0, Neut % (Auto) 77.6, Lymph % (Auto) 11.0, Garvin % (Auto) 7.1, Eos % (Auto) 4.1, Baso % (Auto) 0.2, Neut # (Auto) 9.7 H, Lymph # (Auto) 1.4, [place]vin # (Auto) 0.9, Eos # (Auto) 0.5 H, Baso # (Auto) 0.0, Sodium 140, Potassium 4.7, Chloride 99, Carbon Dioxide 31 H, Anion Gap 14.7, BUN 15, Creatinine 1.00, Estimated Creat Clear 124, Estimated GFR 62, Est GFR ( Amer) 75, Glucose 124 H, Lactate 1.0, Calcium 9.2, Total Bilirubin 0.2, AST 35, ALT 28, Alkaline Phosphatase 123, Total Protein 8.6 H, Albumin 4.5, Globulin 4.1 H, Albumin/Globulin Ratio 1.1 I & O for Last 24 hours: Intake & Output 07/31/23 08/01/23 08/02/23 08/03/23 23:59 23:59 23:59 23:59 Intake Total 2239 Output Total 0 / 0 Balance 2239 / 2239 Weight 104.326 kg 106.282 kg Microbiology Reports for the Last 24 Hours: Microbiology 08/02/23 21:37 Urine,Clean Catch Urine Culture - Preliminary Gram Negative Rods Constitutional Constitutional: no acute distress, morbidly obese, chronically ill appearing and cooperative *Routine HEENT Exam Head: Present normocephalic Eye: Present EOMI and PERRL ENT: Present mucous membranes moist *Routine Neck Exam Neck: Present supple, full ROM and trachea midline; Absent lymphadenopathy *Routine Respiratory Exam Respiratory: Present rhonchi, normal respiratory effort and symmetric chest movement *Routine Cardiovascular Exam Cardiovascular: Present RRR, Normal S1 and Normal S2; Absent murmur *Routine Abdominal Exam Abdominal: Present soft and normoactive bowel sounds *Routine Extremities Exam Extremities: Present full ROM, pulses intact and normal capillary refill; Absent edema *Routine Skin Exam Skin: Present dry and warm; Absent rash *Routine Neurological Exam Neurological: Present alert, oriented X3, moving all extremities, vision grossly intact, hearing grossly intact and normal speech; Absent sensory deficit or motor deficit Routine Psychiatric Exam Psychiatric: Present normal affect, normal thought process, cooperative, good insight and good judgment Assessment and Plan *Assessment and plan (1) Sepsis: Status: Acute Category: Medical Code(s): A41.9 - Sepsis, unspecified organism (2) Pyelonephritis: Status: Acute Category: Medical Code(s): N12 - Tubulo-interstitial nephritis, not specified as acute or chronic (3) Opioid dependence on agonist therapy: Status: Acute Category: Medical Code(s): F11.20 - Opioid dependence, uncomplicated (4) BMI 37.0-37.9, adult: Status: Acute Category: Medical Code(s): Z68.37 - Body mass index [BMI] 37.0-37.9, adult (5) Mood disorder:
[2023-08-03 13:01] LABS: Basophils % 0.3 % (0.1-2.0); Eosinophils # 0.4 K/mm3 (0.0-0.4); Eosinophils % 3.4 % (0.1-12.0); Hematocrit 38.4 % (37.0-47.0); Lymphocytes # 1.2 K/mm3 (0.7-4.5); Lymphocytes % 10.1 % (10-50); Mean Corpuscular Hemoglobin 21.2 pg (27.0-31.2); Mean Platelet Volume 8.7 fl (7.4-10.4); Monocytes # 1.1 K/mm3 (0.1-1.0); Neutrophils # 8.7 K/mm3 (1.8-7.8); Neutrophils % 76.2 % (37.0-80.0); Platelet Count 315 K/mm3 (142-424); Red Blood Count 5.26 M/mm3 (4.20-5.40); Red Cell Distribution Width 16.5 % (11.5-17.5); White Blood Count 11.4 K/mm3 (4.8-10.8)
[2023-08-03 13:17] LABS: Chloride 101 mmol/L (98-107)
[2023-08-03 13:19] LABS: Anion Gap 12.2 mEq/L (5-15); Blood Urea Nitrogen 18 mg/dl (7-17); Calcium 8.5 mg/dl (8.4-10.2); Carbon Dioxide 29 mmol/L (22.0-30.0); Creatinine Clearance Estimated 141 mL/min (50-200); Estimated Glomerular Filt Rate 70 ml/min (>60); GFR (African American) 84 ML/MIN (>60); Glucose 127 mg/dl (74-100); Potassium 4.2 mmoL/L (3.5-5.1); Sodium 138 mmol/L (136-145)
[2023-08-03 15:49] LABS: Hemoglobin 11.2 g/dL (12.2-16.2)
--- NOTE | 2023-08-03 22:56 | PC.NURSE ---
2235 RECEIVED REPORT ON BLD CULTURE/ANEROBIC BTL: GRAM POSITIVE COCCI AND YEAST. STAPHYLOCOCCUS EPIDERMIDID, HAYN TROPICALIC, AND MECA -C GENE. TOSIN León. NOTIFIED.
[2023-08-04 04:00] VITALS: BP 133/73; PULSE 92; RESP 18; TEMP 37.3; O2SAT 93; BMI 38.1
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
[2023-08-04 07:24] VITALS: BP 139/72; PULSE 111; RESP 16; TEMP 38.4; O2SAT 99
[2023-08-04 11:13] VITALS: BP 139/70; PULSE 91; RESP 18; TEMP 36.9; O2SAT 90
--- NOTE | 2023-08-04 11:24 | EXP.PN ---
Subjective *Date: 08/04/23 *Time: 11:24 Interval history: The patient is seen and examined at bedside. She is accompanied by her mother. I am accompanied by nursing staff. Nursing staff report a Tmax 101.2 at 730 this morning with tachycardia and stable blood pressures. She is saturating appropriately on room air. We have reviewed, discussed and I personally interpreted her morning labs as follows: A CBC with an improved leukocytoses WBC 11.4, hemoglobin stable 11.2, platelets normal. Her electrolytes are normal with a potassium 4.2 BUN of 18 and creatinine 0.9. Her glucose trend is under 130. Her blood cultures are no growth to date and her urine cultures identify E. coli greater than 100,000 that is pansensitive. She continues to tolerate her Rocephin with no adverse events. Exam Data for Last 24 hours Vital signs and Labs for Last 24 Hours: Temp Pulse Resp BP Pulse Ox O2 Del Method 98.5 F 91 H 18 139/70 90 L Room Air 08/04/23 11:13 08/04/23 11:13 08/04/23 11:13 08/04/23 11:13 08/04/23 11:13 08/04/23 11:13 Laboratory Results - last 24 hr 08/03/23 12:47: WBC 11.4 H, RBC 5.26, Hgb 11.2 L D, Hct 38.4, MCV 73.0 L, MCH 21.2 L, MCHC 29.0 L, RDW 16.5, Plt Count 315 D, MPV 8.7, Neut % (Auto) 76.2, Lymph % (Auto) 10.1, [place] % (Auto) 10.0 H, Eos % (Auto) 3.4, Baso % (Auto) 0.3, Neut # (Auto) 8.7 H, Lymph # (Auto) 1.2, [place] # (Auto) 1.1 H, Eos # (Auto) 0.4, Baso # (Auto) 0.0, Sodium 138, Potassium 4.2, Chloride 101, Carbon Dioxide 29, Anion Gap 12.2, BUN 18 H, Creatinine 0.90, Estimated Creat Clear 141, Estimated GFR 70, Est GFR ( Amer) 84, Glucose 127 H, Calcium 8.5 I & O for Last 24 hours: Intake & Output 09/08/02/23 08/03/23 08/04/23 23:59 23:59 23:59 23:59 Intake Total 2719 Output Total 0 / 0 Balance 2719 Weight 104.326 kg 106.282 kg 110.268 kg Microbiology Reports for the Last 24 Hours: Microbiology 08/02/23 22:09 Blood Blood Culture - Preliminary 08/02/23 21:37 Urine,Clean Catch Urine Culture - Final Escherichia coli Constitutional Constitutional: no acute distress, morbidly obese, chronically ill appearing and cooperative *Routine HEENT Exam Head: Present normocephalic Eye: Present EOMI and PERRL ENT: Present mucous membranes moist *Routine Neck Exam Neck: Present supple, full ROM and trachea midline; Absent lymphadenopathy *Routine Respiratory Exam Respiratory: Present rhonchi, normal respiratory effort and symmetric chest movement *Routine Cardiovascular Exam Cardiovascular: Present RRR, Normal S1 and Normal S2; Absent murmur *Routine Abdominal Exam Abdominal: Present soft and normoactive bowel sounds *Routine Extremities Exam Extremities: Present full ROM, pulses intact and normal capillary refill; Absent edema *Routine Skin Exam Skin: Present dry and warm; Absent rash *Routine Neurological Exam Neurological: Present alert, oriented X3, moving all extremities, vision grossly intact, hearing grossly intact and normal speech; Absent sensory deficit or motor deficit Routine Psychiatric Exam Psychiatric: Present normal affect, normal thought process, cooperative, good insight and good judgment Assessment and Plan *Assessment and plan (1) Sepsis: Status: Acute Category: Medical Code(s): A41.9 - Sepsis, unspecified organism (2) Pyelonephritis: Status: Acute Category: Medical Code(s): N12 - Tubulo-interstitial nephritis, not specified as acute or chronic (3) Opioid dependence on agonist therapy: Status: Acute Category: Medical Code(s): F11.20 - Opioid dependence, uncomplicated (4) BMI 37.0-37.9, adult: Status: Acute Category: Medical Code(s): Z68.37 - Body mass index [BMI] 37.0-37.9, adult (5) Mood disorder: Status: Acute Category: Medical Code(s): F39 - Unspecified mood [affective] disorder (6
[2023-08-04 15:51] VITALS: BP 127/71; PULSE 92; RESP 20; TEMP 36.5; O2SAT 96
[2023-08-04 20:00] VITALS: BP 139/75; PULSE 88; RESP 20; TEMP 37.1; O2SAT 95
[2023-08-05] VITALS: BP 142/76; PULSE 105; RESP 18; TEMP 37.6; O2SAT 94
[2023-08-05 04:00] VITALS: BP 128/66; PULSE 85; RESP 18; TEMP 37.1; O2SAT 100; BMI 37.7
[2023-08-05 06:52] LABS: Basophils % 0.4 % (0.1-2.0); Eosinophils # 0.9 K/mm3 (0.0-0.4); Eosinophils % 12.5 % (0.1-12.0); Hematocrit 34.3 % (37.0-47.0); Hemoglobin 9.9 g/dL (12.2-16.2); Lymphocytes # 1.4 K/mm3 (0.7-4.5); Mean Corpuscular Hemoglobin 21.4 pg (27.0-31.2); Mean Corpuscular Volume 73.7 fl (81-99); Mean Platelet Volume 8.6 fl (7.4-10.4); Monocytes # 0.8 K/mm3 (0.1-1.0); Monocytes % 11.1 % (1.7-9.3); Neutrophils # 3.9 K/mm3 (1.8-7.8); Neutrophils % 55.9 % (37.0-80.0); Platelet Count 340 K/mm3 (142-424); Red Blood Count 4.66 M/mm3 (4.20-5.40); Red Cell Distribution Width 16.5 % (11.5-17.5)
[2023-08-05 07:02] LABS: Anion Gap 10.5 mEq/L (5-15); Blood Urea Nitrogen 9 mg/dl (7-17); Calcium 8.1 mg/dl (8.4-10.2); Carbon Dioxide 23 mmol/L (22.0-30.0); Chloride 111 mmol/L (98-107); Creatinine Clearance Estimated 186 mL/min (50-200); Estimated Glomerular Filt Rate 93 ml/min (>60); GFR (African American) 113 ML/MIN (>60); Glucose 83 mg/dl (74-100); Potassium 4.5 mmoL/L (3.5-5.1); Sodium 140 mmol/L (136-145)
[2023-08-05 08:00] VITALS: BP 125/77; PULSE 89; RESP 18; TEMP 37; O2SAT 95
--- NOTE | 2023-08-05 11:37 | EXP.DC.SUM ---
General Admission date:: 08/03/23 Discharge date: 08/05/23 HPI HPI HPI: 37-year-old female presented to ED for c/o RLQ abd pain since Saturday. PMHX of hepatitis C, prior heroin use, and COPD. RLQ abd pain radiates to her suprapubic region and vagina. She also c/o fever, chills, and nausea. She also states that it hebert when she pees and she is having urinary frequency. She denies any other concerns or complaints, such as changes in her bowel movements or other issues. ED work up reveals leukocytosis of 12.5, heart rate of 115, and tmax of 101. Her urine is positive for nitrates, leukocyte esterase, TNTC WBC count, and +[address] of the abd/pelvis reveals acute right sided pyelonephritis. She had blood cultures and a urine culture obtained in the ED. She was started on Rocephin 1gm IV. The ED physician spoke with the hospitalist team for further medical management. She arrives to the medical floor in no acute distress requesting to eat. Hospital Course Hospital Course Hospital Course: 37-year-old female presented to ED for c/o RLQ abd pain since Saturday. RLQ abd pain radiates to her suprapubic region and vagina. She also c/o fever, chills, and nausea. ED work up reveals leukocytosis of 12.5, heart rate of 115, and tmax of 101. Her urine is positive for nitrates, leukocyte esterase, TNTC WBC count, and +[address] of the abd/pelvis reveals acute right sided pyelonephritis. She had blood cultures and a urine culture obtained in the ED. She was started on Rocephin. Symptoms defervesced with normalization of white cell count during hospitalization. Still having some mild flank pain however not unexpected given her pyelonephritis. Tolerating antibiotics well. Urine culture positive for E. coli, transition to oral antibiotics to complete 7-day course. Stable for discharge home to complete antibiotic therapy. Problems addressed as follows: Sepsis, POA Right-sided pyelonephritis Tachycardia, tachypnea, febrile, leukocytoses, on admission with imaging concerning for right-sided pyelonephritis. Urinalysis grossly abnormal. Urine culture returned positive with E. coli that is pansensitive. Patient was initiated on ceftriaxone on admission. Transitioned to levofloxacin to complete a total of 7 days of antibiotic therapy. Pain responded well to Toradol, will send home with 5 days of oral therapy. She did have 1 blood culture returned positive for a staph species and Jacquelyn species. This does not correlate with her urinalysis. Likely contaminant. She did complain of recent exposure to trichomonas, will empirically treat with Flagyl 500 mg twice daily for 7 days. Medically stable for discharge home to complete antibiotic therapy. Chronic opioid therapy Continued Suboxone therapy during admission. Continued her home gabapentin therapy. Pain managed with Suboxone and high-dose NSAIDs. Mood disorder Stable during admission. Continued home therapy with lamotrigine, escitalopram, Vraylar, and mirtazapine at night for sleep. Patient clinically improving. Tolerating p.o. intake. Transition to oral antibiotics with treatment guided by urine culture speciation and sensitivity. Stable for discharge home. Exam Data for Last 24 hours Vital signs and Labs for Last 24 Hours: Temp Pulse Resp BP Pulse Ox O2 Del Method 98.6 F 89 18 125/77 95 Room Air 08/05/23 08:00 08/05/23 08:00 08/05/23 08:00 08/05/23 08:00 08/05/23 08:00 08/05/23 10:40 Laboratory Results - last 24 hr 08/02/23 21:37: Urine Color Brown, Urine Appearance Turbid, Urine pH 7.0, Ur Specific [place] 1.020, Urine Protein 3+, Urine Glucose (UA) Negative, Urine Ketones Trace, Urine Blood 3+, Urine Nitrate Positive, Urine Bilirubin 1+ A, Urine Urobilinogen 1.0, Ur Leukocyte Esterase 3+ A, Urine RBC 10-20, Urine WBC Tntc, Ur Squamous Epith Cells 5-10, Urine Bacteria 3+ 08/05/23 05:59: WBC 7.0 D, RBC 4.66, Hgb 9.9 L, Hct 34.3 L, MCV 73.7 L, MCH 21.4 L,
--- NOTE | 2023-08-06 15:45 | CARE MANAGER ---
Attempted post-discharge phone call, voicemail says not accepting calls at this time.
--- NOTE | 2023-08-07 12:30 | CARE MANAGER ---
Attempted to contact patient related to hospital discharge x2. No VM option. NORBERTO Woo
== END 2023-08-05 14:02 | disposition home or self-care (01) ==
LOC: ER 23:39 → 2ND 08-04 03:10
PROVIDERS: Nurse Practitioner Critical Care Medicine; Admitting Provider Family Medicine; Emergency Provider Emergency Medicine; Visit Provider Family Medicine
DX: N12 Tubulo-interstitial nephritis, not specified as acute or chronic (principal); F11.20 Opioid dependence, uncomplicated; B19.20 Unspecified viral hepatitis C without hepatic coma; J44.9 Chronic obstructive pulmonary disease, unspecified; I10 Essential (primary) hypertension; F31.89 Other bipolar disorder; B96.20 Unspecified Escherichia coli [E. coli] as the cause of diseases classified elsewhere; Z87.891 Personal history of nicotine dependence; Z79.899 Other long term (current) drug therapy
CPT/HCPCS: 36415; 74177; 80048; 80053; 81001; 83605; 84145; 85025; 87040; 87077; 87086; 87088; 87186; 99291; G0378; J0131; J0574; J0696; Q9967

== ENCOUNTER 2024-05-11 21:25 | Emergency (ER) | payer OTHER, SELFPAY ==
[2024-05-11 21:26] VITALS: BP 123/82; PULSE 82; RESP 20; TEMP 36.8; O2SAT 100; BMI 37.1
--- NOTE | 2024-05-11 21:28 | ED_ITS ---
<Statement entered by Arlene Guillen DO - 05/12/24 00:17> I was consulted by the HUANG, and we discussed the complexity of the problems being addressed. I approved the treatment and management plan for this patient's care in the emergency department, thus performing a substantive portion of the medical decision making. Arlene Guillen DO Discharge Plan Disposition Patient Disposition: Home, Self-Care Prescriptions Prescriptions: New sulfamethoxazole-trimethoprim 800-160 mg tablet 1 tab PO BID 7 Days Qty: 14 0RF No Action gabapentin 600 mg tablet 600 mg PO TID ketotifen fumarate 0.025 % (0.035 %) drops 1 drp Eye-Both BID hydroxyzine pamoate 50 mg capsule 50 mg PO DAILY montelukast 10 mg tablet 10 mg PO DAILY lamotrigine 100 mg tablet 100 mg PO BID escitalopram oxalate 20 mg tablet 20 mg PO HS buprenorphine-naloxone 8-2 mg Tablet, Sublingual 1 tab SUBLINGUAL BID Ultra Lubricant Eye 0.4-0.3 % drops 1 drp Eye-Both BID mirtazapine 7.5 mg tablet 30 mg PO HS Vraylar 1.5 mg capsule 1.5 mg PO HS metronidazole 500 mg Tablet 500 mg PO BID 7 Days Qty: 13 0RF levofloxacin 750 mg Tablet 750 mg PO 1100 3 Days Qty: 3 0RF Rx Instructions: first dose 08/06 ketorolac 10 mg tablet 10 mg PO TID PRN (Reason: pain) 5 Days Qty: 15 0RF Rx Instructions: tolerated IV formulation while admitted Referrals Follow up/Referrals: Provider,Referral, MD [Primary Care Provider] - See instructions Activity Restrictions/Add. Instructions Additional Instructions/Restrictions: Please take antibiotics as prescribed for treatment of kidney infection. Please follow-up with your primary care provider. Please return to the emergency department if you develop any new or worsening symptoms or become concerned for your health. Clinical Impressions Clinical Impression: Pyelonephritis Instructions Patient Instructions: DI for Kidney Infection Discharge ED Provider: Adiel Islas General Adult HPI <ELAINE Sebastian - Last Filed: 05/11/24 23:18> General Chief complaint: Abdominal Pain Stated complaint: possible kidney stones Time Seen by Provider: 05/11/24 21:28 History of Present Illness HPI narrative: Patient presents for a 2-day history of increasing left flank pain. Patient has history of previous kidney stones. She reports that pain has been radiating from the left flank down across her groin. Patient denies fever chills hemoptysis hematochezia melena nausea vomiting diarrhea. Related Data Home Medications Medication Instructions Recorded Confirmed buprenorphine 8 mg-naloxone 2 mg 1 tab sublingual BID WITHDRAWAL 08/03/23 08/03/23 sublingual tablet cariprazine 1.5 mg capsule 1.5 mg PO HS Depression 08/03/23 08/03/23 (Vraylar) escitalopram oxalate 20 mg tablet 20 mg PO HS Depression 08/03/23 08/03/23 gabapentin 600 mg tablet 600 mg PO TID NEUROPATHY 08/03/23 08/03/23 hydroxyzine pamoate 50 mg capsule 50 mg PO DAILY Anxiety 08/03/23 08/03/23 ketotifen fumarate 0.025 % (0.035 1 drp Eye-Both BID ALLERGIES 08/03/23 08/03/23 %) eye drops lamotrigine 100 mg tablet 100 mg PO BID Depression 08/03/23 08/03/23 mirtazapine 7.5 mg tablet 30 mg PO HS SLEEP 08/03/23 08/03/23 montelukast 10 mg tablet 10 mg PO DAILY allergies 08/03/23 08/03/23 peg 400-propylene glycol 0.4 %-0.3 1 drp Eye-Both BID DRY EYES 08/03/23 08/03/23 % eye drops (Ultra Lubricant Eye) Previous Rx's Medication Instructions Recorded ketorolac 10 mg tablet 10 mg PO TID PRN pain 5 days #15 08/05/23 tabs levofloxacin 750 mg tablet 750 mg PO 1100 3 days #3 tabs 08/05/23 metronidazole 500 mg tablet 500 mg PO BID 7 days #13 tabs 08/05/23 sulfamethoxazole 800 1 tab PO BID 7 days #14 tabs 05/12/24 mg-trimethoprim 160 mg tablet Allergies Allergy/AdvReac Type Severity Reaction Status Date / Time ondansetron [From Zofran] Allergy Verified 07/24/22 12:10 [facility] <ELAINE Sebastian - Last Filed: 05/11/24 23:18> [facility] Disclaimer: The information contained in this section may have been updated after the patient was seen, as this information can be updated by other users. Medical History (Updated 05/12/24 @ 01:05 by Adiel Islas MD) Depression Anxiety Manic bipolar I disorder PTSD (post-traumatic stress disorder) Restless leg syndrome Chronic bronchitis Asthma COPD (chronic obstructive pulmonary disease) Hepatitis C Hypertension Surgical History (Updated 08/03/23 @ 00:26 by Nicole Henson RN) History of tubal ligation History of tonsillectomy and adenoidectomy History of cholecystectomy Social History (Updated 08/03/23 @ 00:26 by Nicole Henson RN) Smoking Status: Current every day smoker smoking status stop date: 2 years ago alcohol intake: never current occupational status: employed and other Travel in the last 8 weeks: None household members: children and friend(s) marital status: number of children: 7 <ELAINE Sebastian - Last Filed: 05/11/24 23:18> ROS Obtained: Yes Systems reviewed as appropriate & no additional complaints except as documented Physical Exam <ELAINE Sebastian - Last Filed: 05/11/24 23:18> General General appearance: alert and in no apparent distress Respiratory Respiratory exam: Present normal lung sounds bilaterally Cardiovascular Cardiovascular exam: Present regular rate and normal rhythm Abdominal Exam Abdominal exam: Present soft, tenderness (Tender to palpation suprapubic area without rebound or guarding or rigidity.) and normal bowel sounds; Absent guarding or rebound Back Exam Back exam: Present normal inspection, full ROM and CVA tenderness (L) Neurological Exam Neurological exam: Present alert and oriented X3 Medical Decision Making <ELAINE Sebastian - Last Filed: 05/11/24 23:18> Medical Records Medical records reviewed: Yes I reviewed the patient's medical records. Bert Inquiry Pt receiving controlled substance: No Vital Signs: 05/11/24 21:26 05/11/24 21:45 05/11/24 23:40 Temperature 98.3 F Temperature Source Oral Pulse Rate 80 73 Pulse Rate [Right Radial] 82 Respiratory Rate 20 18 Blood Pressure 128/88 138/85 Blood Pressure [Right Arm] 123/82 Blood Pressure Mean 93 Blood Pressure Mean [Right Arm] 95 02 Sat by Pulse Oximetry 100 96 99 Oxygen Delivery Method Room Air 05/12/24 00:00 05/12/24 01:21 Temperature 98.2 F Temperature Source Oral Pulse Rate 79 67 Pulse Rate [Right Radial] Respiratory Rate 18 Blood Pressure 107/69 L 105/68 L Blood Pressure [Right Arm] Blood Pressure Mean 81 Blood Pressure Mean [Right Arm] 02 Sat by Pulse Oximetry 97 Oxygen Delivery Method Room Air Lab Data Lab results reviewed: Yes I reviewed the patient's lab results. Lab Results 05/11/24 21:30: Urine Color Yellow, Urine Appearance Clear, Urine pH 6.0, Ur Specific [place] >= 1.030, Urine Protein 1+, Urine Glucose (UA) Negative, Urine Ketones Negative, Urine Blood Trace-i, Urine Nitrate Positive, Urine Bilirubin Negative, Urine Urobilinogen 0.2, Ur Leukocyte Esterase 2+ A, Urine RBC 3-5, Urine WBC 20-50, Ur Squamous Epith Cells 5-10, Urine Bacteria 1+ 05/11/24 22:49: WBC 6.8, RBC 5.10, Hgb 11.1 L, Hct 37.6, MCV 73.9 L, MCH 21.7 L, MCHC 29.4 L, RDW 17.2, Plt Count 409, MPV 8.5, Neut % (Auto) 64.4, Lymph % (Auto) 21.0, [place] % (Auto) 8.4, Eos % (Auto) 5.1, Baso % (Auto) 1.0, Neut # (Auto) 4.4, Lymph # (Auto) 1.4, [place] # (Auto) 0.6, Eos # (Auto) 0.4, Baso # (Auto) 0.1, Sodium 139, Potassium 3.9, Chloride 105, Carbon Dioxide 27, Anion Gap 10.9, BUN 18 H, Creatinine 0.80, Estimated Creat Clear 154, Estimated GFR 79, Est GFR ( Amer) 96, Glucose 109 H, Calcium 8.7, Total Bilirubin 0.2, AST 42 H, ALT 30, Alkaline Phosphatase 89, Total Protein 7.0, Albumin 3.9, Globulin 3.1, Albumin/Globulin Ratio 1.3 05/11/24 22:49 05/11/24 22:49 Orders (Tests/Meds): ED MEDICATIONS Discontinued Medications Generic Name Dose Route Start Last Admin Trade Name Freq PRN Reason Stop Dose Admin Acetaminophen 1,000 mg 05/11/24 21:33 05/11/24 22:30 Acetaminophen 1,000mg/100ml Vial IV 05/11/24 21:34 1,000 mg ONCE ONE Administration Lactated Ringer's 1,000 mls @ 999 mls/hr 05/11/24 21:33 05/11/24 22:31 Lactated Ringer's 1000 Ml Bag IV 05/11/24 22:33 999 mls/hr .Q1H1M ONE Administration Ceftriaxone Sodium 1 gm/ 50 mls @ 100 mls/hr 05/11/24 23:38 05/11/24 23:57 Sodium Chloride IV 05/12/24 00:07 100 mls/hr ONCE ONE Administration Iopamidol 75 ml 05/11/24 23:36 05/11/24 23:36 Iopamidol-370 (76%);100ml Bottle IV 05/11/24 23:37 75 ml ONCE ONE Administration Ketorolac Tromethamine 15 mg 05/11/24 21:33 05/11/24 22:30 Ketorolac 30mg/Ml Vial IV 05/11/24 21:34 15 mg ONCE ONE Administration Ketorolac Tromethamine 15 mg 05/12/24 01:09 05/12/24 01:14 Ketorolac 30mg/Ml Vial IV 05/12/24 01:10 15 mg ONCE ONE Administration Oxycodone HCl 5 mg 05/12/24 01:09 05/12/24 01:15 Oxycodone 5mg Immediate Release Tablet PO 05/12/24 01:10 5 mg ONCE ONE Administration Sodium Chloride 10 ml 05/11/24 23:36 05/11/24 23:36 Sodium Chloride 0.9% 10ml Syr (Rad Only) IV 06/10/24 23:35 10 ml NEEDED PRN Administration Maintain IV Site ORDERS Category Date Time Status CT abdomen pelvis w con Stat Cat Scan 05/11/24 21:33 Completed CBC w/Auto Diff [Complete Blood Count Auto Diff] Stat Lab 05/11/24 22:49 Completed CMP [Comprehensive Metabolic Panel] Stat Lab 05/11/24 22:49 Completed UA [Urinalysis and Microscopic] Stat Lab 05/11/24 21:30 Completed Blood Culture Stat Micro 05/11/24 23:39 Received Urine Culture Stat Micro 05/11/24 21:30 Received Medical Decision Narrative: In summary patient is a 38-year-old female who presents to the emergency department for evaluation of left flank pain and dysuria. Patient is hemodynamically stable upon arrival, afebrile. Physical exam is remarkable for tenderness to palpation in the suprapubic area along with tenderness to percussion in the left flank but there is no abdominal rebound guarding or rigidity or abnormal bowel sounds. Differential diagnosis includes pyelonephritis versus PID versus urinary tract infection versus kidney stone etc. Initial workup will be conducted with hematologic labs CT scan abdomen urinalysis. Initial interventions include crystalloid Toradol Tylenol. Initial workup initiated and pending at the time of handoff at [address] Islas <Adiel Islas MD - Last Filed: 05/12/24 01:44> Vital Signs: 05/11/24 21:26 05/11/24 21:45 05/11/24 23:40 Temperature 98.3 F Temperature Source Oral Pulse Rate 80 73 Pulse Rate [Right Radial] 82 Respiratory Rate 20 18 Blood Pressure 128/88 138/85 Blood Pressure [Right Arm] 123/82 Blood Pressure Mean 93 Blood Pressure Mean [Right Arm] 95 02 Sat by Pulse Oximetry 100 96 99 Oxygen Delivery Method Room Air 05/12/24 00:00 05/12/24 01:21 Temperature 98.2 F Temperature Source Oral Pulse Rate 79 67 Pulse Rate [Right Radial] Respiratory Rate 18 Blood Pressure 107/69 L 105/68 L Blood Pressure [Right Arm] Blood Pressure Mean 81 Blood Pressure Mean [Right Arm] 02 Sat by Pulse Oximetry 97 Oxygen Delivery Method Room Air Lab Data Lab Results 05/11/24 21:30: Urine Color Yellow, Urine Appearance Clear, Urine pH 6.0, Ur Specific Lane [place] >= 1.030, Urine Protein 1+, Urine Glucose (UA) Negative, Urine Ketones Negative, Urine Blood Trace-i, Urine Nitrate Positive, Urine Bilirubin Negative, Urine Urobilinogen 0.2, Ur Leukocyte Esterase 2+ A, Urine RBC 3-5, Urine WBC 20-50, Ur Squamous Epith Cells 5-10, Urine Bacteria 1+ 05/11/24 22:49: WBC 6.8, RBC 5.10, Hgb 11.1 L, Hct 37.6, MCV 73.9 L, MCH 21.7 L, MCHC 29.4 L, RDW 17.2, Plt Count 409, MPV 8.5, Neut % (Auto) 64.4, Lymph % (Auto) 21.0, [place] % (Auto) 8.4, Eos % (Auto) 5.1, Baso % (Auto) 1.0, Neut # (Auto) 4.4, Lymph # (Auto) 1.4, [place] # (Auto) 0.6, Eos # (Auto) 0.4, Baso # (Auto) 0.1, Sodium 139, Potassium 3.9, Chloride 105, Carbon Dioxide 27, Anion Gap 10.9, BUN 18 H, Creatinine 0.80, Estimated Creat Clear 154, Estimated GFR 79, Est GFR ( Amer) 96, Glucose 109 H, Calcium 8.7, Total Bilirubin 0.2, AST 42 H, ALT 30, Alkaline Phosphatase 89, Total Protein 7.0, Albumin 3.9, Globulin 3.1, Albumin/Globulin Ratio 1.3 Orders (Tests/Meds): ED MEDICATIONS Discontinued Medications Generic Name Dose Route Start Last Admin Trade Name Freq PRN Reason Stop Dose Admin Acetaminophen 1,000 mg 05/11/24 21:33 05/11/24 22:30 Acetaminophen 1,000mg/100ml Vial IV 05/11/24 21:34 1,000 mg ONCE ONE Administration Lactated Ringer's 1,000 mls @ 999 mls/hr 05/11/24 21:33 05/11/24 22:31 Lactated Ringer's 1000 Ml Bag IV 05/11/24 22:33 999 mls/hr .Q1H1M ONE Administration Ceftriaxone Sodium 1 gm/ 50 mls @ 100 mls/hr 05/11/24 23:38 05/11/24 23:57 Sodium Chloride IV 05/12/24 00:07 100 mls/hr ONCE ONE Administration Iopamidol 75 ml 05/11/24 23:36 05/11/24 23:36 Iopamidol-370 (76%);100ml Bottle IV 05/11/24 23:37 75 ml ONCE ONE Administration Ketorolac Tromethamine 15 mg 05/11/24 21:33 05/11/24 22:30 Ketorolac 30mg/Ml Vial IV 05/11/24 21:34 15 mg ONCE ONE Administration Ketorolac Tromethamine 15 mg 05/12/24 01:09 05/12/24 01:14 Ketorolac 30mg/Ml Vial IV 05/12/24 01:10 15 mg ONCE ONE Administration Oxycodone HCl 5 mg 05/12/24 01:09 05/12/24 01:15 Oxycodone 5mg Immediate Release Tablet PO 05/12/24 01:10 5 mg ONCE ONE Administration Sodium Chloride 10 ml 05/11/24 23:36 05/11/24 23:36 Sodium Chloride 0.9% 10ml Syr (Rad Only) IV 06/10/24 23:35 10 ml NEEDED PRN Administration Maintain IV Site ORDERS Category Date Time Status CT abdomen pelvis w con Stat Cat Scan 05/11/24 21:33 Completed CBC w/Auto Diff [Complete Blood Count Auto Diff] Stat Lab 05/11/24 22:49 Completed CMP [Comprehensive Metabolic Panel] Stat Lab 05/11/24 22:49 Completed UA [Urinalysis and Microscopic] Stat Lab 05/11/24 21:30 Completed Blood Culture Stat Micro 05/11/24 23:39 Received Urine Culture Stat Micro 05/11/24 21:30 Received Medical Decision Narrative: In summary patient is a 38-year-old female who presents to the emergency department for evaluation of left flank pain and dysuria. Patient is hemodynamically stable upon arrival, afebrile. Physical exam is remarkable for tenderness to palpation in the suprapubic area along with tenderness to percussion in the left flank but there is no abdominal rebound guarding or rigidity or abnormal bowel sounds. Differential diagnosis includes pyelonephritis versus PID versus urinary tract infection versus kidney stone etc. Initial workup will be conducted with hematologic labs CT scan abdomen urinalysis. Initial interventions include crystalloid Toradol Tylenol. Initial workup initiated and pending at the time of handoff at [address] Islas I was consulted by the HUANG, and we discussed the complexity of the problems being addressed. I approved the treatment and management plan for this patient?s care in the Emergency Department, thus performing a substantive portion of the medical decision making. MD joe Morris MD: I assumed care of the patient at the time of handoff from the prior provider. On reassessment patient reports mild improvement in pain but still reports pain is a 5. She was given Tylenol and oxycodone with improvement. Laboratory results independently interpreted, urinalysis is concerning for acute infection, positive nitrates, 250 WBCs, 1+ bacteria. CT imaging independently interpreted by me, no evidence of ureterolithiasis or other emergent pathology. Given this, patient presentation is most consistent with pyelonephritis. She was given IV ceftriaxone, blood cultures were obtained, she is discharged in stable condition prescription for Bactrim for coverage. She was given strict return precautions. Critical Care <ELAINE Sebastian - Last Filed: 05/11/24 23:18> Critical Care Time Critical Care Time: No
--- NOTE | 2024-05-11 21:33 | CT_ITS ---
PROCEDURE INFORMATION: Exam: CT Abdomen And Pelvis With Contrast Exam date and time: 05/11/2024 11:31 PM Age: 38 years old Clinical indication: Abdominal pain; Flank; Left; Additional info: Abdominal pain acute flank pain TECHNIQUE: Imaging protocol: Computed tomography of the abdomen and pelvis with contrast. Radiation optimization: All CT scans at this facility use at least one of these dose optimization techniques: automated exposure control; mA and/or kV adjustment per patient size (includes targeted exams where dose is matched to clinical indication); or iterative reconstruction. Contrast material: ISOVUE; Contrast volume: 75 ml; Contrast route: IV; COMPARISON: 1. CT ABDOMEN PELVIS W CON 08/02/2023 10:[address] ABDOMEN PELVIS WO CON 08/16/2022 12:[address] ABDOMEN PELVIS WO CON 07/24/2022 11:51 AM FINDINGS: Liver: Normal. Gallbladder and biliary ducts: The patient is status post cholecystectomy. There is dilation of the intrahepatic biliary ducts most likely reflecting post cholecystectomy effect. Pancreas: Normal. Spleen: Normal. Adrenal glands: The adrenal glands appear normal. Kidneys and ureters: There are no soft tissue renal masses or hydronephrosis. Stomach and bowel: There is large volume stool throughout the colon. Appendix: No evidence of appendicitis. Intraperitoneal space: There is a small volume of free fluid in the pelvis. Vasculature: The abdominal aorta and its major branches appear normal without evidence of aneurysm or stenosis. There are pelvic phleboliths. Lymph nodes: No lymphadenopathy. Urinary bladder: There is moderate distention of the urinary bladder. Reproductive: No acute process. Bones/joints: The visualized osseous structures of the abdomen and pelvis appear normal for patient age. Soft tissues: There is a small fat containing umbilical hernia. IMPRESSION: No acute inflammatory or obstructive process is identified. Incidental findings are described within the findings section.
[2024-05-11 21:39] LABS: Microscopic, Urine URINE MICROSCOPIC (MICROSCOPIC)
--- NOTE | 2024-05-11 21:39 | PC.NURSE ---
urine collected and sent to lab
[2024-05-11 21:45] VITALS: BP 128/88; PULSE 80; RESP 18; O2SAT 96
[2024-05-11 21:47] LABS: Appearance,Urine CLEAR (Clear); Bilirubin,Urine Negative (Negative); Blood, Urine TRACE-I (Negative); Color,Urine YELLOW (Yellow); Glucose,Urine (UA) Negative (Negative); Ketones,Urine Negative (Negative); Leukocyte Esterase,Urine 2+ (Negative); Nitrate,Urine POSITIVE (Negative); Protein,Urine 1+ (Negative); Specific Gravity, Urine >= 1.030 (1.005-1.030); Urobilinogen,Urine 0.2 EU/dl (0.2)
[2024-05-11 22:14] LABS: Bacteria,Urine 1+ /lpf; WBC,Urine 20-50 #/hpf (0-3)
[2024-05-11] MEDS: ACETAMINOPHEN 1,000MG/100ML VIAL 1000 MG IV (22:30)
[2024-05-11] MEDS: KETOROLAC 30MG/ML VIAL 15 MG IV (22:30)
[2024-05-11] MEDS: LACTATED RINGERS 1000ML 1,000 ML 999 ML IV (22:31)
[2024-05-11 23:13] LABS: Basophils # 0.1 K/mm3 (0-0.2); Eosinophils # 0.4 K/mm3 (0.0-0.4); Eosinophils % 5.1 % (0.1-12.0); Hematocrit 37.6 % (37.0-47.0); Hemoglobin 11.1 g/dL (12.2-16.2); Lymphocytes # 1.4 K/mm3 (0.7-4.5); Mean Corpuscular HGB Conc 29.4 g/dL (31.8-35.4); Mean Corpuscular Hemoglobin 21.7 pg (27.0-31.2); Mean Corpuscular Volume 73.9 fl (81-99); Mean Platelet Volume 8.5 fl (7.4-10.4); Monocytes # 0.6 K/mm3 (0.1-1.0); Monocytes % 8.4 % (1.7-9.3); Neutrophils # 4.4 K/mm3 (1.8-7.8); Neutrophils % 64.4 % (37.0-80.0); Platelet Count 409 K/mm3 (142-424); Red Cell Distribution Width 17.2 % (11.5-17.5); White Blood Count 6.8 K/mm3 (4.8-10.8)
[2024-05-11 23:14] LABS: Chloride 105 mmol/L (98-107); Potassium 3.9 mmoL/L (3.5-5.1); Sodium 139 mmol/L (136-145)
[2024-05-11 23:17] LABS: Alanine Aminotransferase 30 U/L (12-78); Albumin Level 3.9 g/dl (3.5-5.0); Albumin/Globulin Ratio 1.3 (1.1-1.8); Alkaline Phosphatase 89 U/L (38-126); Anion Gap 10.9 mEq/L (5-15); Aspartate Amino Transferase 42 U/L (14-36); Bilirubin,Total 0.2 mg/dl (0.2-1.3); Blood Urea Nitrogen 18 mg/dl (7-17); Carbon Dioxide 27 mmol/L (22.0-30.0); Creatinine Clearance Estimated 154 mL/min (50-200); Estimated Glomerular Filt Rate 79 ml/min (>60); GFR (African American) 96 ML/MIN (>60); Globulin 3.1 g/dL (1.3-3.2)
[2024-05-11 23:18] LABS: Calcium 8.7 mg/dl (8.4-10.2); Glucose 109 mg/dl (74-100)
--- NOTE | 2024-05-11 23:34 | PC.NURSE ---
patient to RAD at 2209
[2024-05-11] MEDS: SODIUM CHLORIDE 0.9% 10ML SYR (RAD ONLY) 10 ML IV (23:36)
[2024-05-11] MEDS: IOPAMIDOL-370 (76%);100ML BOTTLE 75 ML IV (23:36)
[2024-05-11 23:40] VITALS: BP 138/85; PULSE 73; O2SAT 99
[2024-05-11] MEDS: CEFTRIAXONE 1 GM 1 GM in 0.9 % SODIUM CHLORIDE 50 ML IV (23:57)
[2024-05-12] VITALS: BP 107/69; PULSE 79; O2SAT 97
--- NOTE | 2024-05-12 00:46 | PC.NURSE ---
radiology notified re read time
--- NOTE | 2024-05-12 00:47 | PC.NURSE ---
radiology sending a note to [facility] re read
[2024-05-12] MEDS: KETOROLAC 30MG/ML VIAL 15 MG IV (01:14)
[2024-05-12] MEDS: OXYCODONE 5MG IMMEDIATE RELEASE TABLET 5 MG PO (01:15)
[2024-05-12 01:21] VITALS: BP 105/68; PULSE 67; RESP 18; TEMP 36.8; O2SAT 97
--- NOTE | 2024-05-12 10:26 | PC.NURSE ---
urine prelim discussed with , pt dc with bactrim, ntd
--- NOTE | 2024-05-13 08:43 | PC.NURSE ---
URINE CULTURE DISCUSSED WITH DR. HAWLEY. ATTEMPTED TO REACH PT, UNABLE TO LEAVE PT MESSAGE
--- NOTE | 2024-05-13 09:37 | PC.NURSE ---
PT CALLED, UPDATED ON URINE RESULTS. HAD NOT FILLED PREVIOUS RX. CHANGED TO CEFDINIR 300MP PO BID X 10 DAYS. CALL TO [facility] [phone]
== END 2024-05-12 01:32 | disposition home or self-care (01) ==
PROVIDERS: Physician Assistant; Emergency Provider Emergency Medicine
DX: N10 Acute pyelonephritis (principal); B96.29 Other Escherichia coli [E. coli] as the cause of diseases classified elsewhere; R10.32 Left lower quadrant pain; M54.59 Other low back pain; F17.210 Nicotine dependence, cigarettes, uncomplicated; J44.9 Chronic obstructive pulmonary disease, unspecified; I10 Essential (primary) hypertension; Z87.442 Personal history of urinary calculi
CPT/HCPCS: 74177; 80053; 81001; 85025; 87040; 87086; 87088; 87186; 96361; 96365; 96375; 96376; 99285; J0131; J0696; J1885; J7120; Q9967

== ENCOUNTER 2024-06-22 19:31 | Emergency (ER) | payer OTHER, SELFPAY ==
[2024-06-22 19:34] VITALS: BP 106/63; PULSE 72; RESP 16; TEMP 36.6; O2SAT 98; BMI 37.1
--- NOTE | 2024-06-22 19:44 | ED_ITS ---
<Statement entered by Ger Stauffer MD - 06/24/24 22:43> I was consulted by the HUANG, and we discussed the complexity of the problems being addressed. I approved the treatment and management plan for this patient's care in the emergency department, thus performing a substantive portion of the medical decision making. Ger Stauffer MD, KASANDRA, FACEP Discharge Plan Disposition Patient Disposition: Home, Self-Care Condition: Good Prescriptions Prescriptions: New sulfamethoxazole-trimethoprim [Bactrim DS] 800-160 mg tablet 1 tab PO BID 5 Days Qty: 10 0RF fluconazole 150 mg tablet 150 mg PO DAILY Qty: 1 0RF Rx Instructions: Take after all antibiotics are completed No Action sulfamethoxazole-trimethoprim 800-160 mg tablet 1 tab PO BID 7 Days Qty: 14 0RF gabapentin 600 mg tablet 600 mg PO TID ketotifen fumarate 0.025 % (0.035 %) drops 1 drp Eye-Both BID hydroxyzine pamoate 50 mg capsule 50 mg PO DAILY montelukast 10 mg tablet 10 mg PO DAILY lamotrigine 100 mg tablet 100 mg PO BID escitalopram oxalate 20 mg tablet 20 mg PO HS buprenorphine-naloxone 8-2 mg Tablet, Sublingual 1 tab SUBLINGUAL BID Ultra Lubricant Eye 0.4-0.3 % drops 1 drp Eye-Both BID mirtazapine 7.5 mg tablet 30 mg PO HS Vraylar 1.5 mg capsule 1.5 mg PO HS metronidazole 500 mg Tablet 500 mg PO BID 7 Days Qty: 13 0RF levofloxacin 750 mg Tablet 750 mg PO 1100 3 Days Qty: 3 0RF Rx Instructions: first dose 08/06 ketorolac 10 mg tablet 10 mg PO TID PRN (Reason: pain) 5 Days Qty: 15 0RF Rx Instructions: tolerated IV formulation while admitted Referrals Follow up/Referrals: Provider,Referral, [Primary Care Provider] - See instructions Activity Restrictions/Add. Instructions Additional Instructions/Restrictions: Follow-up with your PCP for any worsening signs or symptoms. Follow-up with your [employer] for any worsening reproductive symptoms. Return to ER for any worsening signs or symptoms as needed. Clinical Impressions Clinical Impression: Trichomonas infection Urinary tract infectious disease Qualifiers: Urinary tract infection type: site unspecified Hematuria presence: with hematuria Qualified Code(s): N39.0 - Urinary tract infection, site not specified Instructions Patient Instructions: DI for Urinary Tract Infection (UTI), DI for Trichomoniasis Print Language Print Language: Czech Discharge ED Provider: Ger Stauffer General Adult HPI General Chief complaint: Abdominal Pain Stated complaint: Unable to pee x2 days Time Seen by Provider: 06/22/24 19:44 History of Present Illness HPI narrative: Patient presents for evaluation of lower abdominal pain dysuria and difficulty with urination. Patient reports that she has had increasing difficulty with urination with lower abdominal pain. Patient also reports a vaginal discharge. She denies any fever chills hemoptysis hematochezia melena nausea vomit diarrhea. Related Data Home Medications ?Medication ?Instructions ?Recorded ?Confirmed buprenorphine 8 mg-naloxone 2 mg 1 tab sublingual BID WITHDRAWAL 08/03/23 08/03/23 sublingual tablet cariprazine 1.5 mg capsule 1.5 mg PO HS Depression 08/03/23 08/03/23 (Vraylar) escitalopram oxalate 20 mg tablet 20 mg PO HS Depression 08/03/23 08/03/23 gabapentin 600 mg tablet 600 mg PO TID NEUROPATHY 08/03/23 08/03/23 hydroxyzine pamoate 50 mg capsule 50 mg PO DAILY Anxiety 08/03/23 08/03/23 ketotifen fumarate 0.025 % (0.035 1 drp Eye-Both BID ALLERGIES 08/03/23 08/03/23 %) eye drops lamotrigine 100 mg tablet 100 mg PO BID Depression 08/03/23 08/03/23 mirtazapine 7.5 mg tablet 30 mg PO HS SLEEP 08/03/23 08/03/23 montelukast 10 mg tablet 10 mg PO DAILY allergies 08/03/23 08/03/23 peg 400-propylene glycol 0.4 %-0.3 1 drp Eye-Both BID DRY EYES 08/03/23 08/03/23 % eye drops (Ultra Lubricant Eye) Previous Rx's ?Medication ?Instructions ?Recorded ketorolac 10 mg tablet 10 mg PO TID PRN pain 5 days #15 08/05/23 tabs levofloxacin 750 mg tablet 750 mg PO 1100 3 days #3 tabs 08/05/23 metronidazole 500 mg tablet 500 mg PO BID 7 days #13 tabs 08/05/23 sulfamethoxazole 800 1 tab PO BID 7 days #14 tabs 05/12/24 mg-trimethoprim 160 mg tablet fluconazole 150 mg tablet 150 mg PO DAILY 1 dose #1 tab 06/22/24 sulfamethoxazole 800 1 tab PO BID 5 days #10 tabs 06/22/24 mg-trimethoprim 160 mg tablet (Bactrim DS) Allergies Allergy/AdvReac Type Severity Reaction Status Date / Time ondansetron [From Zofran] Allergy Verified 07/24/22 12:10 [facility] Disclaimer: The information contained in this section may have been updated after the patient was seen, as this information can be updated by other users. Medical History (Updated 06/22/24 @ 22:42 by ELAINE Sebastian) Depression Anxiety Manic bipolar I disorder PTSD (post-traumatic stress disorder) Restless leg syndrome Chronic bronchitis Asthma COPD (chronic obstructive pulmonary disease) Hepatitis C Hypertension Surgical History (Updated 08/03/23 @ 00:26 by Nicole Henson RN) History of tubal ligation History of tonsillectomy and adenoidectomy History of cholecystectomy Social History (Updated 08/03/23 @ 00:26 by Nicole Henson RN) Smoking Status: Never smoker smoking status stop date: 2 years ago alcohol intake: never current occupational status: employed and other Travel in the last 8 weeks: None household members: children and friend(s) marital status: number of children: 7 ROS Obtained: Yes Systems reviewed as appropriate & no additional complaints except as documented Physical Exam General General appearance: alert and in no apparent distress Respiratory Respiratory exam: Present normal lung sounds bilaterally Cardiovascular Cardiovascular exam: Present regular rate and normal rhythm Abdominal Exam Abdominal exam: Present soft, tenderness (Patient is tender to palpation in the suprapubic area without rebound or guarding or rigidity. Bowel sounds are normal active.) and normal bowel sounds; Absent guarding, rebound or rigidity Back Exam Back exam: Present normal inspection and full ROM; Absent tenderness, CVA tenderness (R) or CVA tenderness (L) Neurological Exam Neurological exam: Present alert and oriented X3 Skin Skin exam: Present warm, dry and normal color Medical Decision Making Medical Records Medical records reviewed: Yes I reviewed the patient's medical records. Bert Inquiry Pt receiving controlled substance: No Vital Signs: 06/22/24 19:34 06/22/24 22:47 Temperature 97.9 F 98.0 F Temperature Source Oral Oral Pulse Rate 73 Pulse Rate [Left] 72 Respiratory Rate 16 18 Blood Pressure 94/65 L Blood Pressure [Right Arm] 106/63 L Blood Pressure Mean [Right Arm] 77 Blood Pressure Source Automatic Cuff Blood Pressure Source [Right Arm] Automatic Cuff Blood Pressure Position Supine Blood Pressure Position [Right Arm] Sitting 02 Sat by Pulse Oximetry 98 Oxygen Delivery Method Room Air Room Air Lab Data Lab results reviewed: Yes I reviewed the patient's lab results. Lab Results 06/22/24 20:12: Sodium 139, Potassium 3.6, Chloride 108 H, Carbon Dioxide 24, Anion Gap 10.6, BUN 16, Creatinine 0.70, Estimated Creat Clear 176, Estimated GFR 93, Est GFR ( Amer) 112, Glucose 126 H, Calcium 9.1, Total Bilirubin 0.5, AST 57 H, ALT 42, Alkaline Phosphatase 72, Total Protein 7.3, Albumin 3.9, Globulin 3.4 H, Albumin/Globulin Ratio 1.1 06/22/24 21:58: Urine Color Yellow, Urine Appearance Clear, Urine pH 5.5, Ur Specific Sproul >= 1.030, Urine Protein 2+, Urine Glucose (UA) Negative, Urine Ketones Trace, Urine Blood 3+, Urine Nitrate Negative, Urine Bilirubin Negative, Urine Urobilinogen 1.0, Ur Leukocyte Esterase 1+ A, Urine RBC Tntc, Urine WBC Tntc, Ur Squamous Epith Cells 20-50, Urine Bacteria 4+, Urine Trichomonas 2+ 06/22/24 20:12 Orders (Tests/Meds): ED MEDICATIONS Discontinued Medications Generic Name Dose Route Start Last Admin Trade Name Mikeq PRN Reason Stop Dose Admin Acetaminophen 1,000 mg 06/22/24 19:47 06/22/24 20:06 Acetaminophen 500mg Tab PO 06/22/24 19:48 1,000 mg ONCE ONE Administration Lactated Ringer's 1,000 mls @ 999 mls/hr 06/22/24 19:47 06/22/24 20:06 Lactated Ringer's 1000 Ml Bag IV 06/22/24 20:47 999 mls/hr .Q1H1M ONE Administration Ketorolac Tromethamine 15 mg 06/22/24 19:47 06/22/24 20:06 Ketorolac 30mg/Ml Vial IV 06/22/24 19:48 15 mg ONCE ONE Administration Metronidazole 2,000 mg 06/22/24 22:37 06/22/24 22:46 Metronidazole 500 Mg Tablet PO 06/22/24 22:38 2,000 mg ONCE ONE Administration ORDERS Category Date Time Status CMP [Comprehensive Metabolic Panel] Stat Lab 06/22/24 20:12 Completed UA [Urinalysis and Microscopic] Stat Lab 06/22/24 21:58 Completed Urine Culture Stat Micro 06/22/24 21:58 Received Medical Decision Narrative: In summary patient is a 38-year-old female who presents to the emergency department for evaluation of dysuria difficulty with urination and vaginal discharge abdominal pain. Patient is hemodynamically stable upon arrival, afebrile. Physical exam is remarkable for tenderness to palpation suprapubic area without rebound or guarding or rigidity.. Differential diagnosis includes UTI versus vaginal infection versus constipation versus intra-abdominal infection such as PID etc. Initial workup will be conducted with hematologic labs urinalysis. Initial interventions include crystalloid bolus Toradol Tylenol. Initial workup reviewed by me shows patient has significant urinary tract infection along with trichomonas. Her hematologic labs however are nonactionable. Upon repeat evaluation patient reports significant improvement after initial intervention. Given this patient is appropriate for discharge with treatment for urinary tract infection and trichomonas with first dose is given here. Critical Care Critical Care Time Critical Care Time: No
[2024-06-22] MEDS: LACTATED RINGERS 1000ML 1,000 ML 999 ML IV (20:06)
[2024-06-22] MEDS: ACETAMINOPHEN 500MG TAB 1000 MG PO (20:06)
[2024-06-22] MEDS: KETOROLAC 30MG/ML VIAL 15 MG IV (20:06)
[2024-06-22 21:26] LABS: Alanine Aminotransferase 42 U/L (12-78); Albumin Level 3.9 g/dl (3.5-5.0); Albumin/Globulin Ratio 1.1 (1.1-1.8); Alkaline Phosphatase 72 U/L (38-126); Anion Gap 10.6 mEq/L (5-15); Aspartate Amino Transferase 57 U/L (14-36); Bilirubin,Total 0.5 mg/dl (0.2-1.3); Blood Urea Nitrogen 16 mg/dl (7-17); Calcium 9.1 mg/dl (8.4-10.2); Carbon Dioxide 24 mmol/L (22.0-30.0); Chloride 108 mmol/L (98-107); Creatinine Clearance Estimated 176 mL/min (50-200); Estimated Glomerular Filt Rate 93 ml/min (>60); GFR (African American) 112 ML/MIN (>60); Globulin 3.4 g/dL (1.3-3.2); Glucose 126 mg/dl (74-100); Potassium 3.6 mmoL/L (3.5-5.1); Sodium 139 mmol/L (136-145); Total Protein,Serum 7.3 g/dl (6.3-8.2)
--- NOTE | 2024-06-22 21:55 | PC.NURSE ---
Bladder scan attempted 13ml showing present. Pt ambulatory to restroom to attempt to urinate
[2024-06-22 22:02] LABS: Microscopic, Urine URINE MICROSCOPIC (MICROSCOPIC)
[2024-06-22 22:11] LABS: Appearance,Urine CLEAR (Clear); Blood, Urine 3+ (Negative); Color,Urine YELLOW (Yellow); Glucose,Urine (UA) Negative (Negative); Ketones,Urine TRACE (Negative); Leukocyte Esterase,Urine 1+ (Negative); Nitrate,Urine Negative (Negative); PH,Urine 5.5 (5.0-8.5); Protein,Urine 2+ (Negative); Specific Gravity, Urine >= 1.030 (1.005-1.030)
[2024-06-22 22:30] LABS: Bilirubin,Urine Negative (Negative)
[2024-06-22 22:32] LABS: RBC,Urine TNTC #/hpf (0-3); Squamous Epithelial Cell,Urine 20-50 #/hpf (0-5); WBC,Urine TNTC #/hpf (0-3)
[2024-06-22 22:33] LABS: Bacteria,Urine 4+ /lpf; Trichomonas,Urine 2+ /lpf
[2024-06-22] MEDS: metroNIDAZOLE 500 MG TABLET 2000 MG PO (22:46)
[2024-06-22 22:47] VITALS: BP 94/65; PULSE 73; RESP 18; TEMP 36.7; O2SAT 98
== END 2024-06-22 22:53 | disposition home or self-care (01) ==
PROVIDERS: Physician Assistant; Emergency Provider Student in an Organized Health Care Education/Training Program
DX: N39.0 Urinary tract infection, site not specified (principal); R31.9 Hematuria, unspecified; B96.89 Other specified bacterial agents as the cause of diseases classified elsewhere; A59.9 Trichomoniasis, unspecified; R10.30 Lower abdominal pain, unspecified; R30.0 Dysuria; R39.198 Other difficulties with micturition
CPT/HCPCS: 80053; 81001; 87086; 96361; 96374; 99284; J1885; J7120